=== PATIENT | female | born 1945 | race Asian ===

== ENCOUNTER 2017-05-07 12:55 | Inpatient (IN) | payer MEDICARE ==
[~2017-05-07] VITALS: Ht 172.7 cm; Wt 80.3 kg
[~2017-05-07 12:55] MED LIST: ALLO100T56 PO; ATEN25TA PO; FOLI1TAB16 PO; LEVO75TA7 PO; SENN-22 PO; SIMV10TA6 PO
[2017-05-07 14:16] VITALS: BP 143/79
[2017-05-07 16:00] VITALS: BP 138/73
[2017-05-07] MEDS ORDERED: MORPHINE SULFATE INJ 4 MG/ML DISP.SYRIN IV PRN (16:00)
[2017-05-07] MEDS ORDERED: MAGNESIUM HYDROXIDE 30 ML UDC PO PRN (16:00)
[2017-05-07] MEDS ORDERED: HYDROCODONE/APAP 5/325MG 1 EACH TABLET PO PRN (16:00)
[2017-05-07] MEDS ORDERED: MAG HYDROX/AL HYDROX/SIMETH 30 ML UDC PO PRN (16:00)
[2017-05-07] MEDS ORDERED: ONDANSETRON HCL/PF 4 MG/2 ML VIAL IVP PRN (16:00)
[2017-05-07] MEDS ORDERED: Z GUARD REMEDY 2 OZ OINT TP PRN (16:00)
[2017-05-07] MEDS ORDERED: ACETAMINOPHEN 325 MG TABLET PO PRN (16:00)
[2017-05-07] MEDS: IV NS 0.9% 1,000 ML IV PRN (16:36)
[2017-05-07 17:55] LABS: BASOPHILS % (AUTO) 0.1 % (0.0-2.0); HEMATOCRIT 37 % (33-45); HEMOGLOBIN 12.4 g/dL (11.5-14.8); LYMPHOCYTES # (AUTO) 1.1 /CMM (0.8-4.8); LYMPHOCYTES % (AUTO) 8.5 % (20.0-44.0); MEAN CORPUSCULAR HEMOGLOBIN 30 PG (26.0-33.0); MEAN CORPUSCULAR HGB CONC 33 g/dl (31.0-36.0); MEAN CORPUSCULAR VOLUME 91 fL (82-100); MONOCYTES # (AUTO) 0.9 /CMM (0.1-1.30); MONOCYTES % (AUTO) 7.1 % (2.0-12.0); NEUTROPHILS # (AUTO) 10.9 /CMM (1.8-8.9); NEUTROPHILS % (AUTO) 84.3 % (43.0-81.0); PLATELET COUNT (AUTO) 143 /CMM (150-450); RED BLOOD CELL COUNT(AUTO) 4.08 MIL/uL (4.0-5.2); WHITE BLOOD COUNT (AUTO) 12.9 K/uL (4.3-11.0)
[2017-05-07 18:16] LABS: ALBUMIN 3.8 g/dL (3.4-5.0); BILIRUBIN,DIRECT 0.2 mg/dL (0.0-0.2); BILIRUBIN,TOTAL 0.8 mg/dL (0.2-1.0); CALCIUM, SERUM 9.4 mg/dL (8.5-10.1); CREATININE 0.9 mg/dL (0.6-1.3); TOTAL PROTEIN, SERUM 8.8 g/dL (6.4-8.2)
[2017-05-07 20:00] VITALS: BP 127/73
[2017-05-08] MEDS: IV NS 0.9% 1,000 ML IV PRN (06:20)
[2017-05-08 07:45] LABS: BASOPHILS % (AUTO) 0.4 % (0.0-2.0); EOSINOPHILS # (AUTO) 0.1 /CMM (0.0-0.7); EOSINOPHILS % (AUTO) 0.9 % (0.0-6.0); HEMATOCRIT 32 % (33-45); HEMOGLOBIN 10.8 g/dL (11.5-14.8); LYMPHOCYTES # (AUTO) 1.4 /CMM (0.8-4.8); LYMPHOCYTES % (AUTO) 24.6 % (20.0-44.0); MEAN CORPUSCULAR HEMOGLOBIN 31 PG (26.0-33.0); MEAN CORPUSCULAR HGB CONC 34 g/dl (31.0-36.0); MEAN CORPUSCULAR VOLUME 92 fL (82-100); MONOCYTES # (AUTO) 0.6 /CMM (0.1-1.30); MONOCYTES % (AUTO) 11.1 % (2.0-12.0); NEUTROPHILS # (AUTO) 3.6 /CMM (1.8-8.9); PLATELET COUNT (AUTO) 113 /CMM (150-450); RDW COEFFICIENT OF VARIATION 14.9 (11.5-15.0); RED BLOOD CELL COUNT(AUTO) 3.48 MIL/uL (4.0-5.2); WHITE BLOOD COUNT (AUTO) 5.7 K/uL (4.3-11.0)
[2017-05-08 08:00] VITALS: BP 125/71
[2017-05-08 08:06] LABS: CALCIUM, SERUM 7.8 mg/dL (8.5-10.1); CREATININE 0.8 mg/dL (0.6-1.3); MAGNESIUM 2.1 mg/dL (1.8-2.4); POTASSIUM 3.6 mmol/L (3.5-5.1)
[2017-05-08 08:17] LABS: THYROID STIMULATING HORMONE 0.219 uIU/mL (0.358-3.74)
[2017-05-08] MEDS: FOLIC ACID 1 MG TABLET PO SCH (08:47)
[2017-05-08] MEDS: LEVOTHYROXINE SODIUM 75 MCG TABLET PO SCH (08:47)
[2017-05-08] MEDS: ATENOLOL 25 MG TABLET PO SCH (08:48)
[2017-05-08] MEDS: SIMVASTATIN 10 MG TABLET PO SCH (08:48)
[2017-05-08] MEDS: ALLOPURINOL 100 MG TABLET PO SCH (08:48)
[2017-05-08] MEDS ORDERED: DIATR MEGLU/DIATRIZOATE SODIUM 120 ML BOTTLE (GASTROGRAPHIN) ONE (09:19)
[2017-05-08 16:00] VITALS: BP 134/62
[2017-05-08 19:53] VITALS: BP 124/77
[2017-05-08 20:00] VITALS: BP 124/77
[2017-05-09 08:00] VITALS: BP 126/58
[2017-05-09] MEDS: FOLIC ACID 1 MG TABLET PO SCH (08:01)
[2017-05-09] MEDS: SIMVASTATIN 10 MG TABLET PO SCH (08:01)
[2017-05-09] MEDS: LEVOTHYROXINE SODIUM 75 MCG TABLET PO SCH (08:01)
[2017-05-09] MEDS: ATENOLOL 25 MG TABLET PO SCH (08:02)
[2017-05-09] MEDS: ALLOPURINOL 100 MG TABLET PO SCH (08:02)
[2017-05-09 08:04] VITALS: BP 126/58
== END 2017-05-09 12:30 | disposition home or self-care (01) | DRG 392 ==
LOC: MEDSG2 13:43
PROVIDERS: ADMIT Nurse Practitioner Acute Care; ATTEND Nurse Practitioner Acute Care
DX: K57.90 Diverticulosis of intestine, part unspecified, without perforation or abscess without bleeding (principal); D72.829 Elevated white blood cell count, unspecified; E03.9 Hypothyroidism, unspecified; Z85.3 Personal history of malignant neoplasm of breast; E78.5 Hyperlipidemia, unspecified; I10 Essential (primary) hypertension; Z90.12 Acquired absence of left breast and nipple; Z90.710 Acquired absence of both cervix and uterus
CPT/HCPCS: 36415; 74250-TC; 80048-TC; 80053-TC; 80076-TC; 83735-TC; 84100-TC; 84443-TC; 85025-TC; 87081-TC; J2270; J7030; Q9963; Z7610

== ENCOUNTER 2017-07-07 21:29 | Inpatient (IN) | payer MEDICARE ==
[~2017-07-07] VITALS: Ht 160 cm; Wt 75.8 kg
--- NOTE | 2017-07-07 21:34 | NUR ---
PT TO ER BED 12. BIB FAMILY C/O ABD PAIN WITH N/V FOR A FEW HOURS. PT PLACED IN GOWN AND ON MANAGER DELI. VSS/RESP EVEN UNLABORED/NAD NOTED/SKIN WARM AND DRY/AFEBRILE/AOX4. AWAITING MD CALLE.
[2017-07-07] MEDS ORDERED: ONDANSETRON HCL/PF 4 MG/2 ML VIAL ONE (22:00)
[2017-07-07] MEDS ORDERED: IV NS 0.9% 1,000 ML BAG IV ONE (22:00)
--- NOTE | 2017-07-07 22:05 | NUR ---
URINE SPECIMEN OBTAINED AND SENT TO THE LAB.
--- NOTE | 2017-07-07 22:10 | NUR ---
20G IV TO R AC X 1 ATTEMPT USING ASEPTIC TECH, BLOOD HANDED OVER TO THE LAB AT THE BEDSIDE. IV FLUSHES EASILY WITH NS, NO S/S INFILTRATION NOTED AT THIS TIME.
[2017-07-07 22:17] LABS: APPEARANCE,URINE SL CLOUDY (CLEAR); BASOPHILS % (AUTO) 0.1 % (0.0-2.0); BILIRUBIN,URINE NEGATIVE (NEGATIVE); BLOOD, URINE TRACE-INTA Ery/uL (NEGATIVE); COLOR,URINE YELLOW (YELLOW); EOSINOPHILS % (AUTO) 0.1 % (0.0-6.0); HEMATOCRIT 38 % (33-45); HEMOGLOBIN 12.5 g/dL (11.5-14.8); KETONES,URINE 1+ (NEGATIVE); LEUKOCYTE ESTERASE ,URINE NEGATIVE (NEGATIVE); LYMPHOCYTES # (AUTO) 1.2 /CMM (0.8-4.8); LYMPHOCYTES % (AUTO) 11.1 % (20.0-44.0); MEAN CORPUSCULAR HGB CONC 33 g/dl (31.0-36.0); MEAN CORPUSCULAR VOLUME 91 fL (82-100); MONOCYTES # (AUTO) 0.2 /CMM (0.1-1.30); MONOCYTES % (AUTO) 2.2 % (2.0-12.0); NEUTROPHILS # (AUTO) 9.2 /CMM (1.8-8.9); NEUTROPHILS % (AUTO) 86.5 % (43.0-81.0); NITRITE, URINE NEGATIVE (NEGATIVE); PLATELET COUNT (AUTO) 168 /CMM (150-450); PROTEIN,URINE TRACE mg/dl (NEGATIVE); RED BLOOD CELL COUNT(AUTO) 4.16 MIL/uL (4.0-5.2); UGLUCOSE NEGATIVE (NEGATIVE); UROBILINOGEN,URINE 0.2 EU/dL (0.2); WHITE BLOOD COUNT (AUTO) 10.6 K/uL (4.3-11.0)
[2017-07-07 22:28] LABS: BACTERIA,URINE Few /HPF (None Seen); SQUAMOUS EPITHELIAL CELL,UR Few /HPF (None Seen); WBC,URINE 0-2 /HPF (0-3)
[2017-07-07 22:29] LABS: CALCIUM, SERUM 10.2 mg/dL (8.5-10.1); CREATININE 0.8 mg/dL (0.6-1.3); MUCUS,URINE Moderate /LPF (None Seen); POTASSIUM 3.8 mmol/L (3.5-5.1)
[2017-07-07] MEDS ORDERED: ONDANSETRON HCL/PF - ER 4 MG/2 ML VIAL IV ONE (22:30)
[2017-07-07 22:34] LABS: ALBUMIN 4.3 g/dL (3.4-5.0); BILIRUBIN,DIRECT 0.3 mg/dL (0.0-0.2); BILIRUBIN,TOTAL 1.1 mg/dL (0.2-1.0); TOTAL PROTEIN, SERUM 9.7 g/dL (6.4-8.2)
[2017-07-07] MEDS ORDERED: HYDROMORPHONE INJ 2 MG/ML DISP.SYRIN ONE (22:48)
[2017-07-07] MEDS ORDERED: HYDROMORPHONE 1 MG/1 ML DISP.SYRIN IV ONE (23:00)
--- NOTE | 2017-07-07 23:16 | NUR ---
ULTRASOUND AT BEDSIDE.
[2017-07-08] MEDS ORDERED: ZOLPIDEM TARTRATE 5 MG TABLET PO PRN
[2017-07-08] MEDS ORDERED: HYDROCODONE/APAP 5/325MG 1 EACH TABLET PO PRN
[2017-07-08] MEDS ORDERED: ACETAMINOPHEN 325 MG TABLET PO PRN
[2017-07-08] MEDS ORDERED: Z GUARD REMEDY 2 OZ OINT TP PRN
[2017-07-08] MEDS ORDERED: ONDANSETRON HCL/PF 4 MG/2 ML VIAL IVP PRN
[2017-07-08] MEDS ORDERED: MAG HYDROX/AL HYDROX/SIMETH 30 ML UDC PO PRN
--- NOTE | 2017-07-08 00:03 | NUR ---
PT TO CT VIA STRETCHER. VSS.
--- NOTE | 2017-07-08 00:16 | NUR ---
BACK FROM CT.
[2017-07-08] MEDS ORDERED: METOCLOPRAMIDE HCL 10 MG/2 ML VIAL ONE (00:48)
[2017-07-08] MEDS ORDERED: HYDROMORPHONE INJ 0.5 MG/0.5 ML SYRINGE ONE (00:49)
[2017-07-08] MEDS ORDERED: HYDROMORPHONE 1 MG/1 ML DISP.SYRIN IV ONE (01:00)
[2017-07-08] MEDS ORDERED: METOCLOPRAMIDE HCL 10 MG/2 ML VIAL IV ONE (01:00)
[2017-07-08] MEDS ORDERED: PIPERACILLIN /TAZOBACTAM 3.375 G in IV D5W 50 ML IV STA (01:21)
[2017-07-08] MEDS ORDERED: PIPERACILLIN /TAZOBACTAM 3.375 G VIAL IV ONE (01:24)
--- NOTE | 2017-07-08 01:30 | NUR ---
REPORT GIVEN TO CRUZ LIRIANO FOR AUREA.
[2017-07-08 02:04] VITALS: BP 136/75
--- NOTE | 2017-07-08 02:04 | NUR ---
PT TRANSPORTED VIA STRETCHER WITH EMT TO M/S 203. VSS.
[2017-07-08] MEDS: MORPHINE SULFATE INJ 4 MG/ML DISP.SYRIN IV PRN ×2 (02:15→06:28)
--- NOTE | 2017-07-08 02:15 | NUR ---
RN NOTES: SKIN ASSESSMENT PERFORMED, NO SKIN ISSUES NOTED. ORIENTED PT TO UNIT POLICY, USE OF CALL LIGHT AND HOURLY ROUNDING
[2017-07-08] MEDS: IV D5/0.45 NACL 1,000 ML IV PRN ×2 (02:24→14:33)
[2017-07-08 02:30] VITALS: BP 136/75
--- NOTE | 2017-07-08 02:30 | NUR ---
RN NOTES: PT'S SON ADITI BERMAN CAME TO CHECK ON THE PT, INFORMED ABOUT PT'S WALLET AND MONEY, PT'S SON TAKE THE WALLET WITH HIM, SO ONLY CLOTHES CELLPHONE ACTIVE DIRECTORY SYSTEMS ADMINISTRATOR AND EYE GLASS REMAINS AT BED SIDE.
--- NOTE | 2017-07-08 03:32 | NUR ---
RN NOTES RECEIVED PATIENT FROM ER, ALERT AND ORIENTED X4, ANXIOUS, COMPLAINING OF ABDOMINAL PAIN OF 8/10, SMALL BOWEL OBSTRUCTION CONFIRMED BY CT ABDOMEN, NG TUBE FOR ABDOMINAL DECOMPRESSION CONNECTED TO INTERMITTENT SUCTION DRAINAGE IS LIGHT YELLOW LIQUID. AMBULATES,CONTINENT OF BOWEL AND BLADDER, REQUIRES SUPERVISION DURING AMBULATION, DISCUSSED WITH PATIENT PLAN OF CARE AND MEDICATION SCHEDULE, SKIN ASSESSMENT PERFORMED, KEPT HOB ELEVATED, KEPT SAFE AND COMFORTABLE, CALL LIGHT WITHIN REACH.
[2017-07-08 06:17] LABS: HEMATOCRIT 39 % (33-45); HEMOGLOBIN 13.1 g/dL (11.5-14.8); LYMPHOCYTES # (AUTO) 0.6 /CMM (0.8-4.8); LYMPHOCYTES % (AUTO) 4.1 % (20.0-44.0); MEAN CORPUSCULAR HGB CONC 33 g/dl (31.0-36.0); MEAN CORPUSCULAR VOLUME 91 fL (82-100); MONOCYTES % (AUTO) 6.5 % (2.0-12.0); NEUTROPHILS # (AUTO) 13.6 /CMM (1.8-8.9); NEUTROPHILS % (AUTO) 89.4 % (43.0-81.0); PLATELET COUNT (AUTO) 142 /CMM (150-450); WHITE BLOOD COUNT (AUTO) 15.3 K/uL (4.3-11.0)
[2017-07-08 06:33] LABS: ALBUMIN 3.8 g/dL (3.4-5.0); BILIRUBIN,DIRECT 0.2 mg/dL (0.0-0.2); BILIRUBIN,TOTAL 0.9 mg/dL (0.2-1.0); CALCIUM, SERUM 9.5 mg/dL (8.5-10.1); CREATININE 0.6 mg/dL (0.6-1.3); MAGNESIUM 2.2 mg/dL (1.8-2.4); POTASSIUM 3.9 mmol/L (3.5-5.1); TOTAL PROTEIN, SERUM 9.1 g/dL (6.4-8.2)
--- NOTE | 2017-07-08 06:39 | NUR ---
RN NOTES PATIENT IS ALERT AND AWAKE, NO SOB, STABLE ON ROOM AIR, INTERMITTENT LOW SUCTION DUE TO SBO, OUTPUT 600 CC OF YELLOWISH DRAINAGE, PROVIDED PAIN MEDICATION FOR ABDOMINAL PAIN, VERBALIZED GOOD RELIEF. KEPT HOB ELEVATED, CALL LIGHT WITHIN REACH
--- NOTE | 2017-07-08 07:39 | NUR ---
MS RN OPENING NOTES RECEIVED PT LAYING IN BED WITH HOB ELEVATED. AWAKE AND RESPONSIVE. RESPIRATIONS ARE EVEN AND UNLABORED, NOT IN ANY ACUTE DISTRESS NOTED. PT STATES SHE DENIES ANY PAIN AT THIS TIME. BILATERAL HAND CARPET WINDER ARE STRONG AND EQUAL. NO C/O SOB, N/V. NGT IN PLACE WITH SUCTIONING. IV SITE INTACT, NO INFILTRATION NOTED.DRESSING KEPT CLEAN AND DRY. SAFETY MEASURES ARE IN PLACE. CALL LIGHT IS LEFT WITHIN REACH. WILL CONTINUE TO MONITOR THROUGHOUT SHIFT FOR CONTINUITY OF CARE.
[2017-07-08 08:00] VITALS: BP 102/52
[2017-07-08] MEDS: PANTOPRAZOLE 40 MG VIAL IV SCH (08:19)
--- NOTE | 2017-07-08 15:35 | NUR ---
MS RN NOTES PT SEEN AND EXAMINED BY DR. DESIR. PT WILL CONTINUE TO BE NPO AND MONITOR NG OUTPUT.
[2017-07-08 16:00] VITALS: BP 124/67
--- NOTE | 2017-07-08 16:50 | NUR ---
MS RN NOTES REMOVED NGT PER PROTOCOL. PT TOLERATED WELL. PER DR. FAJARDO TO SLOWLY GIVE ICE CHIPS AND SEE HOW PT TOLERATES ICE.
[2017-07-08] MEDS ORDERED: BISACODYL SUPP (10 MG) 10 MG/SUPP.RECT SUPP.RECT RC ONE (18:45)
--- NOTE | 2017-07-08 18:45 | NUR ---
MS RN NOTES PT SEEN AND EXAMINED BY DR. FAJARDO WITH ORDERS TO GIVE DULCOLAX SUPP X1 NOW AND REMOVAL OF NGT. PER DR. FAJARDO, POSSIBLE EGD ON MONDAY. PT MADE AWARE.
--- NOTE | 2017-07-08 19:07 | NUR ---
MS RN CLOSING NOTES ALL DUE MEDS GIVEN, NEEDS MET AND RENDERED. A/O X4, AFEBRILE. RESPIRATIONS ARE EVEN AND UNLABORED, NOT IN ANY ACUTE DISTRESS NOTED. DENIES ANY PAIN AT THIS TIME, N/V, SOB. IV SITE INTACT, NO INFILTRATION NOTED. DRESSING KEPT CLEAN AND DRY. SAFETY MEASURES ARE IN PLACE. WILL ENDORSE TO NEXT SHIFT FOR CONTINUITY OF CARE.
--- NOTE | 2017-07-08 19:25 | NUR ---
MS/RN OPENING NOTES PT RECEIVED AWAKE, LAYING IN BED. A/OX4. ON ROOM AIR, BREATHING EVEN AND UNLABORED. NO SOB OR PAIN NOTED. IN NO APPARENT DISTRESS. IV TO LAC PATENT AND INTACT RUNNING IVF ORDERED. PT NPO. BED IN LOW/LOCKED POSITION WITH CALL LIGHT IN REACH. SIDE RAILS UPX2. WILL CONTINUE TO MONITOR
[2017-07-08 19:55] VITALS: BP 127/61
[2017-07-09 05:49] LABS: CALCIUM, SERUM 8.6 mg/dL (8.5-10.1); CREATININE 0.8 mg/dL (0.6-1.3); MAGNESIUM 2.1 mg/dL (1.8-2.4); PHOSPHORUS 2.3 mg/dL (2.5-4.9); POTASSIUM 3.4 mmol/L (3.5-5.1)
[2017-07-09 05:55] LABS: BASOPHILS % (AUTO) 0.5 % (0.0-2.0); HEMATOCRIT 31 % (33-45); HEMOGLOBIN 10.3 g/dL (11.5-14.8); LYMPHOCYTES # (AUTO) 1.8 /CMM (0.8-4.8); LYMPHOCYTES % (AUTO) 36.6 % (20.0-44.0); MEAN CORPUSCULAR HGB CONC 33 g/dl (31.0-36.0); MEAN CORPUSCULAR VOLUME 91 fL (82-100); MONOCYTES # (AUTO) 0.7 /CMM (0.1-1.30); MONOCYTES % (AUTO) 14.8 % (2.0-12.0); NEUTROPHILS # (AUTO) 2.3 /CMM (1.8-8.9); NEUTROPHILS % (AUTO) 47.1 % (43.0-81.0); PLATELET COUNT (AUTO) 126 /CMM (150-450); RDW COEFFICIENT OF VARIATION 15.3 (11.5-15.0); RED BLOOD CELL COUNT(AUTO) 3.37 MIL/uL (4.0-5.2); WHITE BLOOD COUNT (AUTO) 4.8 K/uL (4.3-11.0)
[2017-07-09] MEDS: IV D5/0.45 NACL 1,000 ML IV PRN (06:53)
--- NOTE | 2017-07-09 07:03 | NUR ---
MS/RN CLOSING NOTES PT AWAKE, RESTING COMFORTABLY IN BED. A/OX4. REMAINS ON ROOM AIR, BREATHING EVEN AND UNLABORED. NO C/O OF PAIN AT THIS TIME. NO SOB OR S/S OF DISTRESS. IV CHANGES TO RFA, IVF INFUSING WELL. NPO STATUS MAINTAINED DURING SHIFT. PER DR. FAJARDO, OKAY TO GIVE ICE CHIPS. PT TOLERATED WELL. DENIES N/V. NO SIGNIFICANT CHANGES OVERNIGHT. KEPT PT COMFORTABLE DURING SHIFT. ALL NEEDS MET. BED REMAINS IN LOW/LOCKED POSITION WITH CALL LIGHT IN REACH. SIDE RAILS UXP2. WILL ENDORSE TO DAY SHIFT RN AUREA.
[2017-07-09 08:00] VITALS: BP 113/65
--- NOTE | 2017-07-09 08:00 | NUR ---
RN NOTES RECEIVED PATIENT IN THE BED A/O X4, NO ACUTE RESPIRATORY DISTRESS, NO SOB. PATIENT NPO, SCHEDULED MEDICATION ADMINISTERED, V/S STABLE, PATIENT AMBULATORY SELF CARE, USING BATHROOM. PATIENT ON IV NS AT 75 ML/HR FA INTACT. PATIENT REFUSED PAIN AT THIS TIME. PATIENT AROM, ENCOURAGED TO EXPRESS FEELINGS AND CONCERNS. CALL LIGHT WITHIN TO REACH, CONTINUED MONITORING.
[2017-07-09] MEDS: PANTOPRAZOLE 40 MG VIAL IV SCH (08:47)
[2017-07-09] MEDS: POTASSIUM CL. PREMIX PERIPHER. 50 ML IV SCH ×2 (10:09→12:17)
[2017-07-09] MEDS ORDERED: Sodium Phosphate 7.5 MMOL in IV D5W 100 ML IV ONE (15:30)
[2017-07-09 16:00] VITALS: BP 122/63
[2017-07-09] MEDS: MAGNESIUM HYDROXIDE 30 ML UDC PO PRN (16:27)
--- NOTE | 2017-07-09 16:27 | NUR ---
RN NOTES ADMINISTERED MILK OF MAGNESIA FOR CONSTIPATION PER PATIENT REQUEST, CONTINUED MONITORING.
--- NOTE | 2017-07-09 18:30 | NUR ---
RN NOTES PATIENT STABLE AT THIS TIE EATING DINNER, NO ACUTE DISTRESS, NO COMPLAINING OF N/V. NO PAIN AT THIS TIME. PATIENT SIGN CONSENT FORM FOR UPPER ENDOSCOPY ON 07/11/[address] FAJARDO. CALL LIGHT WITHIN TO REACH. ENDORSED ONCOMING NURSE FOR CONTINUATION OF CARE
--- NOTE | 2017-07-09 19:30 | NUR ---
MS/RN OPENING NOTES PT RECEIVED AWAKE, FINISHING DINNER. ON ROOM AIR, BREATHING EVEN AND UNLABORED. DENIES SOB OR PAIN AT THIS TIME. ON CLEAR LIQUID DIET. TOLERATING WELL. DENIES N/V. RECEIVED PRN MILK OF MAGNESIA, NO BM YET. ENCOURAGED TO AMBULATE. IV TO RIGHT WRIST RUNNING IVF ORDERED. BED IN LOW/LOCKED POSITION WITH CALL LIGHT IN REACH. SIDE RAILS UPX2. WILL CONTINUE TO MONITOR
--- NOTE | 2017-07-09 19:37 | NUR ---
RN NOTES PATIENT CLEAR LIQUID DIET AT THIS TIME. PATIENT TOLERATED FLUIDS WELL. MEDICATION WERE ADMINISTERED FOR CONSTIPATED NOT EFFECTED YET. ENCOURAGED PATIENT TO MORE AMBULATE. SCHEDULED MEDICATION ADMINISTERED, V/S STABLE, CALL LIGHT WITHIN TO REACH. CONTINUED MONITORING.
[2017-07-09 20:00] VITALS: BP 160/83
[2017-07-09 20:05] VITALS: BP 160/83
[2017-07-09 21:00] VITALS: BP 136/63
[2017-07-09 21:29] VITALS: BP 136/63
--- NOTE | 2017-07-10 02:03 | NUR ---
MS/RN NOTES PT STATES SHE HAD BM.
[2017-07-10 06:22] LABS: BASOPHILS % (AUTO) 0.4 % (0.0-2.0); HEMATOCRIT 30 % (33-45); HEMOGLOBIN 10.2 g/dL (11.5-14.8); LYMPHOCYTES # (AUTO) 1.5 /CMM (0.8-4.8); LYMPHOCYTES % (AUTO) 43.6 % (20.0-44.0); MEAN CORPUSCULAR HGB CONC 34 g/dl (31.0-36.0); MEAN CORPUSCULAR VOLUME 91 fL (82-100); MONOCYTES # (AUTO) 0.4 /CMM (0.1-1.30); NEUTROPHILS # (AUTO) 1.5 /CMM (1.8-8.9); PLATELET COUNT (AUTO) 115 /CMM (150-450); RDW COEFFICIENT OF VARIATION 14.3 (11.5-15.0); RED BLOOD CELL COUNT(AUTO) 3.31 MIL/uL (4.0-5.2); WHITE BLOOD COUNT (AUTO) 3.5 K/uL (4.3-11.0)
--- NOTE | 2017-07-10 06:47 | NUR ---
MS/RN CLOSING NOTES PT AWAKE, PERFORMING MORNING CARE. AMBULATING AROUND ROOM. STEADY GAIT. REMAINS ON ROOM AIR, BREATHING EVEN AND UNLABORED. DENIES SOB OR PAIN AT THIS TIME AND THROUGHOUT SHIFT. IV TO RIGHT FA AND RIGHT WRIST PATENT AND INTACT. IVF CURRENTLY ON HOLD SO PT CAN COMPLETE AM CARE. TOLERATING CLEAR LIQUIDS, DENIES N/V. PT HAD BM. ENCOURAGED AMBULATION. PLAN FOR ENDOSCOPY ON MONDAY 07/[address] FAJARDO. NO SIGNIFICANT CHANGES OVERNIGHT. KEPT PT COMFORTABLE. PT SLEPT WELL DURING SHIFT. ALL NEEDS MET. BED REMAINS IN LOW/LOCKED POSITION WITH CALL LIGHT IN REACH. SIDE RAILS UPX2. WILL ENDORSE TO DAY SHIFT RN AUREA.
[2017-07-10 06:57] LABS: CALCIUM, SERUM 8.3 mg/dL (8.5-10.1); CREATININE 0.7 mg/dL (0.6-1.3); MAGNESIUM 2.1 mg/dL (1.8-2.4); PHOSPHORUS 2.8 mg/dL (2.5-4.9); POTASSIUM 3.2 mmol/L (3.5-5.1)
[2017-07-10 08:00] VITALS: BP 155/82
--- NOTE | 2017-07-10 08:05 | NUR ---
RN NOTES RECEIVED PATIENT IN THE BED EATING. PATIENT A/O X4, PATIENT STABLE, NO ACUTE RESPIRATORY DISTRESS, V/S STABLE. PATIENT REFUSED PAIN AT THIS TIME, NO N/V, CALL LIGHT WITHIN TO REACH. SAFETY PRECAUTION MAINTAINED ALL THE TIME.
[2017-07-10] MEDS: PANTOPRAZOLE 40 MG VIAL IV SCH (08:36)
[2017-07-10] MEDS: IV D5/0.45 NACL 1,000 ML IV PRN (10:00)
[2017-07-10] MEDS: POTASSIUM CHLORIDE 20 MEQ TAB.PRT.SR PO SCH ×2 (11:29→13:47)
--- NOTE | 2017-07-10 12:29 | NUR ---
RN NOTES PATIENT STABLE NO ACUTE DISTRESS AT THIS TIME, SCHEDULED MEDICATION ADMINISTERED, CALL LIGHT WITHIN TO REACH. CONTINUED MONITORING.
[2017-07-10] MEDS ORDERED: POTASSIUM CHLORIDE 20 MEQ TAB.PRT.SR PO SCH (14:00)
[2017-07-10 16:00] VITALS: BP 172/72
--- NOTE | 2017-07-10 18:37 | NUR ---
RN NOTES PATIENT STABLE AT THIS TIME, TOLERATED DINNER WELL, NO COMPLAINING OF PAIN, NO N/V. PATIENT AMBULATORY , SELF CARE. ENDORSED ONCOMING NURSE FOR PLAN OF CARE.
[2017-07-10] MEDS: MAGNESIUM HYDROXIDE 30 ML UDC PO PRN (19:02)
--- NOTE | 2017-07-10 19:02 | NUR ---
rn notes administered milk of magnesia 30 ml po prn for constipation, per patient request. endorsed oncoming nurse to follow up.
--- NOTE | 2017-07-10 19:26 | NUR ---
RN NOTE; RECEIVED PT IN BED AWAKE AND ALERT. BREATHING EVENLY. NO SOB. NAD .SKIN WARM AND DRY. NO C/O ABD PAIN. NO N/V. ON ONGOING IVF HYDRATION. DILAN WELL. NEEDS ATTENDED. BED LOW LOCKED. CALL LIGHT WITHIN REACH. WILL CONT TO MONITOR .
[2017-07-10 20:00] VITALS: BP 153/78
--- NOTE | 2017-07-11 06:52 | NUR ---
PT IN BED AWAKE AND ALERT. NO ACUTE EVENT DURING THE NIGHT, NO C/O PAIN OR DISCOMFORT. NPO FOR EGD TODAY. NEEDS ATTENDED. CALL LIGHT WITHIN REACH,. WILL CONT TO MONITOR AND WILL ENDORSE TO AM SHIFT FOR AUREA.
[2017-07-11] MEDS ORDERED: ANESTHESIA TRAY IN PYXIS 1 EA TRAY MC ONE (07:08)
[2017-07-11 07:10] LABS: CALCIUM, SERUM 9.2 mg/dL (8.5-10.1); CREATININE 0.9 mg/dL (0.6-1.3); MAGNESIUM 2.4 mg/dL (1.8-2.4); PHOSPHORUS 3.2 mg/dL (2.5-4.9); POTASSIUM 3.5 mmol/L (3.5-5.1)
[2017-07-11] MEDS: PANTOPRAZOLE 40 MG VIAL IV SCH (07:29)
--- NOTE | 2017-07-11 07:41 | NUR ---
MS/RN GI Patient taken to GI for EGD, medical record with patient.
[2017-07-11 08:00] VITALS: BP 146/84
[2017-07-11 08:10] VITALS: BP 146/84
--- NOTE | 2017-07-11 08:54 | NUR ---
MS/RN Back in room Patient back in room following EGD, vital signs upon return within normal range. Orders noted and carried out.
[2017-07-11] MEDS ORDERED: PANT40TA2 PO (12:30)
--- NOTE | 2017-07-11 13:05 | NUR ---
MS/RN S/B Galindo Ramon Seen by Galindo Ramon - patient to be discharged to home today and follow up with Dr Sexton for results of biopsy.
--- NOTE | 2017-07-11 15:47 | NUR ---
MS/RN Post discharge follow up Patient made aware that a post discharge follow up appointment had been made for her in the [facility] on 07/13/17n at 1215.
[2017-07-11 16:00] VITALS: BP 144/72
[2017-07-11 16:03] VITALS: BP 144/72
--- NOTE | 2017-07-11 16:19 | NUR ---
MS/associate scientist paperwork Discharge paperwork signed by patient. Education provided regarding the importance of following up with primary care doctor and Dr Sexton. Contact information provided, also given appointment with Dr Pollack.
--- NOTE | 2017-07-11 18:26 | NUR ---
MS/rigging engineer All discharge paperwork signed by patient, heplock removed. Awaiting transport, provided by friend.
== END 2017-07-11 18:33 | disposition home or self-care (01) | DRG 390 ==
LOC: ER 21:30 → MEDSG2 07-08 00:47
PROVIDERS: ADMIT Internal Medicine; ATTEND Internal Medicine
PROC: 0DB28ZZ Excision of Middle Esophagus, Via Natural or Artificial Opening Endoscopic (ICD-10-PCS; 2017-07-11)
PROC: 0DB78ZX Excision of Stomach, Pylorus, Via Natural or Artificial Opening Endoscopic, Diagnostic (ICD-10-PCS; principal; 2017-07-11 07:55)
DX: K56.600 Partial intestinal obstruction, unspecified as to cause (principal); E03.9 Hypothyroidism, unspecified; E78.5 Hyperlipidemia, unspecified; I10 Essential (primary) hypertension; Z85.3 Personal history of malignant neoplasm of breast; Z90.12 Acquired absence of left breast and nipple; Z90.710 Acquired absence of both cervix and uterus; M10.9 Gout, unspecified; K44.9 Diaphragmatic hernia without obstruction or gangrene; R93.5 Abnormal findings on diagnostic imaging of other abdominal regions, including retroperitoneum; K29.70 Gastritis, unspecified, without bleeding; K22.8 Other specified diseases of esophagus; K66.8 Other specified disorders of peritoneum
CPT/HCPCS: 36415; 76705-TC; 80048-TC; 80076-TC; 81000-TC; 83690-TC; 83735-TC; 84100-TC; 85025-TC; 87081-TC; 88305-TC; 88313-TC; 88342; A4606; A9563; C9113; J1170; J2270; J2405; J2543; J2704; J2765; J3480; J3490; J7030; J7060; Z7610